=== PATIENT | female | born 2000 | race African-American/Black ===

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

== ENCOUNTER 2018-01-12 23:00 | Emergency (ER) | payer OTHER ==
[2018-01-12 23:55] LABS: Bilirubin Negative (Negative); Blood, Urine Negative (Negative); Clarity Clear (Clear); Glucose, Urine (Dipstick) Negative (Negative); Leukocyte Trace (Negative); Nitrite Negative (Negative); Protein, Urine (Dipstick) Negative (Neg-Trace); Specific Gravity, Urine 1.025 (1.005-1.030); Urobilinogen 0.2 mg/dL (0.2-1.0)
[2018-01-13 00:07] LABS: Bacteria/HPF 2+ HPF (None Seen); Hyaline Casts/LPF NONE SEEN LPF (0-3 Hyaline); RBC/HPF 0-3 HPF (0-3); WBC/HPF 0-3 HPF (0-3)
[2018-01-13 00:18] LABS: Pregnancy Test - Urine (BHCG) Negative (Negative); Pregu Control Background? CLEAR/WHITE (CLR/WHITE); Pregu Control Bar Appear? YES (CONTROL BAR); Specific Gravity 1.025 (1.002-1.036)
== END 2018-01-13 00:35 | disposition home or self-care (01) ==
LOC: SCSER 23:00
DX: N39.0 Urinary tract infection, site not specified (principal); F31.9 Bipolar disorder, unspecified; F17.210 Nicotine dependence, cigarettes, uncomplicated
CPT/HCPCS: 81003; 81015; 81025; 87086; 99283

== ENCOUNTER 2018-02-11 00:39 | Emergency (ER) | payer OTHER ==
--- NOTE | 2018-02-11 07:57 | RAD ---
TWO VIEWS OF THE CHEST: COMPARISON: 06/30/15. HISTORY: Cough with green sputum. FINDINGS: Two views of the chest show normal sized cardiomediastinal silhouette. There is no evidence of consol idation, mass, or pleural effusion. The bones are unremarkable. IMPRESSION: No evidence of acute cardiopulmonary disease. POS: CET
== END 2018-02-11 03:10 | disposition home or self-care (01) ==
LOC: ERS 00:39
DX: J18.9 Pneumonia, unspecified organism (principal); F31.9 Bipolar disorder, unspecified; F17.210 Nicotine dependence, cigarettes, uncomplicated
CPT/HCPCS: 71046

== ENCOUNTER 2018-04-11 21:44 | Emergency (ER) | payer OTHER ==
[2018-04-11 22:32] LABS: Bilirubin Negative (Negative); Blood, Urine Negative (Negative); Clarity Cloudy (Clear); Glucose, Urine (Dipstick) Negative (Negative); Leukocyte Negative (Negative); Nitrite Negative (Negative); Protein, Urine (Dipstick) Negative (Neg-Trace); Specific Gravity, Urine 1.025 (1.005-1.030)
[2018-04-11 22:36] LABS: Pregnancy Test - Urine (BHCG) POSITIVE (Negative); Pregu Control Background? CLEAR/WHITE (CLR/WHITE); Pregu Control Bar Appear? YES (CONTROL BAR); Specific Gravity 1.025 (1.002-1.036)
== END 2018-04-11 22:50 | disposition home or self-care (01) ==
LOC: SCSER 21:44
DX: O21.9 Vomiting of pregnancy, unspecified (principal); O99.89 Other specified diseases and conditions complicating pregnancy, childbirth and the puerperium; R10.9 Unspecified abdominal pain; O99.331 Smoking (tobacco) complicating pregnancy, first trimester; F17.210 Nicotine dependence, cigarettes, uncomplicated; Z3A.00 Weeks of gestation of pregnancy not specified
CPT/HCPCS: 81003; 81025; 99284

== ENCOUNTER 2018-04-13 20:03 | Emergency (ER) | payer OTHER ==
[2018-04-13 20:46] LABS: #Basophils 0.1 thou/uL (0.0-0.2); #Eosinphils 0.2 thou/uL (0.0-0.7); #Monocytes 0.5 thou/uL (0.11-0.59); #Neutrophils 3.7 thou/uL (1.40-6.50); %Basophils 1.5 % (0.0-1.0); %Eosinophils 2.8 % (0.0-10.0); %Lymphocytes 40.3 % (28.0-48.0); %Monocytes 6.7 % (0.0-4.0); %Neutrophils 48.8 % (31.0-61.0); Hemoglobin 12.7 g/dL (12.0-16.0); Mean Corpuscular HGB CONC 33.3 g/dL (32.0-36.0); Mean Corpuscular Hemoglobin 27.6 pg (25.0-35.0); Mean Corpuscular Volume 82.8 fL (78.0-98.0); Mean Platelet Volume 7.5 fL (7.4-10.4); Platelet Count 371 thou/uL (130-400); RBC Distribution Width 11.8 % (11.5-14.5); Red Blood Cell (RBC) Count 4.62 mill/uL (4.00-5.20); White Blood Cell (WBC) Count 7.5 thou/uL (4.8-10.8)
--- NOTE | 2018-04-13 22:15 | ULT ---
PELVIC ULTRASOUND: 04/13/18 HISTORY: Patient has a positive test. Pelvic cramping and pain. COMPARISON: None. TECHNIQUE: Transabdominal and endovaginal imaging of the pelvis is performed. Ovaries are interrogated with gomez scale, color flow, doppler imaging and spectral waveform analysis. FINDINGS: The uterus is identified, without myometrial masses. The uterus measures 4.2 x 5.2 x 8.4 cm. Endometr ium is thickened and has a diameter of approximately 2 cm. Within the endometrium, no evidence of a g estational sac, yolk sac, or pole. No free fluid. Left and right ovary have a normal cortical echotexture. Left ovary measures 2.8 x 2.2 x 2.6 cm. Righ t ovary measures 2.2 x 3.4 x 1.5 c m. OVARIAN DOPPLER: Vascular flow to both ovaries. IMPRESSION: Thickened homogeneous endometrium without evidence of gestational sac, yolk sac or pole. Differ ential considerations include missed spontaneous versus a sonographically occult ectopic pre gnancy, versus early intrauterine gestation. Followup ultrasound and serial beta HGCs are recommended . POS: CESAR
== END 2018-04-13 22:22 | disposition home or self-care (01) ==
LOC: SCSER 20:03
DX: O99.89 Other specified diseases and conditions complicating pregnancy, childbirth and the puerperium (principal); R10.9 Unspecified abdominal pain; O99.331 Smoking (tobacco) complicating pregnancy, first trimester; F17.210 Nicotine dependence, cigarettes, uncomplicated; Z3A.01 Less than 8 weeks gestation of pregnancy
CPT/HCPCS: 76856; 84702; 85025; 86900; 86901

== ENCOUNTER 2018-04-30 22:29 | Emergency (ER) | payer MEDICAID, OTHER ==
[2018-04-30 23:03] LABS: #Basophils 0.2 thou/uL (0.0-0.2); #Eosinphils 0.2 thou/uL (0.0-0.7); #Lymphocytes 3.4 thou/uL (1.20-3.40); #Monocytes 0.9 thou/uL (0.11-0.59); #Neutrophils 5.7 thou/uL (1.40-6.50); %Basophils 1.5 % (0.0-1.0); %Eosinophils 2.3 % (0.0-10.0); %Lymphocytes 32.6 % (28.0-48.0); %Monocytes 8.3 % (0.0-4.0); %Neutrophils 55.4 % (31.0-61.0); Hemoglobin 12.5 g/dL (12.0-16.0); Mean Corpuscular HGB CONC 33.9 g/dL (32.0-36.0); Mean Corpuscular Hemoglobin 27.7 pg (25.0-35.0); Mean Corpuscular Volume 81.6 fL (78.0-98.0); Mean Platelet Volume 7.9 fL (7.4-10.4); Platelet Count 336 thou/uL (130-400); RBC Distribution Width 11.5 % (11.5-14.5); Red Blood Cell (RBC) Count 4.53 mill/uL (4.00-5.20); White Blood Cell (WBC) Count 10.4 thou/uL (4.8-10.8)
[2018-04-30 23:16] LABS: ALT (SGPT) 13 U/L (8-55); AST (SGOT) 11 U/L (5-34); Albumin 4.2 g/dL (3.5-5.0); Alkaline Phosphatase 82 U/L (40-150); Anion Gap 14 mmol/L (10-20); BUN (Urea Nitrogen) 9 mg/dL (7.0-18.7); Bilirubin, Total 0.3 mg/dL (0.2-1.2); Calc. Creatinine Clearance 0 mL/min (70-130); Calcium 9.5 mg/dL (7.8-10.44); Carbon Dioxide 22 mmol/L (22-29); Chloride 107 mmol/L (98-107); Estimated GFR-MDRD Greater than 90; Globulin 3.3 g/dL (2.4-3.5); Glucose 97 mg/dL (70-105); Lipase 14 U/L (8-78); Potassium 3.9 mmol/L (3.5-5.1); Protein, Total 7.5 g/dL (6.0-8.3); Sodium 139 mmol/L (136-145)
[2018-04-30 23:36] LABS: Bilirubin Negative (Negative); Blood, Urine Negative (Negative); Clarity Clear (Clear); Glucose, Urine (Dipstick) Negative (Negative); Leukocyte Negative (Negative); Nitrite Negative (Negative); Protein, Urine (Dipstick) Negative (Neg-Trace); pH, Urine 6.5 (5.0-9.0)
[2018-04-30 23:37] LABS: Specific Gravity, Urine 1.035 (1.002-1.036)
--- NOTE | 2018-05-01 00:01 | ULT ---
RIGHT UPPER QUADRANT ULTRASOUND: 04/30/18 HISTORY: Right upper quadrant pain. TECHNIQUE: Multiplanar gomez scale sonographic imaging of the right upper quadrant provided. FINDINGS: The imaged pancreas appears grossly unremarkable. No focal liver lesion or intrahepatic biliary dilat ation is seen. The dance coach reports a negative Henning's sign. No gallbladder wall thickening or pe richolecystic fluid. No gallstones are noted. The CBD measures 4 mm in transverse dimension, within normal limits. The right kidney measures 11 cm in craniocaudal dimension and demonstrates no evidence for stone, hydronephrosis or mass. IMPRESSION: Unremarkable right upper quadrant ultrasound. POS: [facility]
--- NOTE | 2018-05-01 08:22 | ULT ---
PELVIC ULTRASOUND WITH DOPPLER: (Transabdominal, transvaginal, Walton scale, color flow, and spectral Doppler) Date; 04/30/18 HISTORY: Pelvic pain. FINDINGS: The uterus measures 8.5 x 4.6 x 5.4 cm. The right ovary measures 2.0 x 1.7 x 1.5 cm. The left ovary m easures 3.2 x 1.9 x 2.6 cm. Flow is demonstrated to both ovaries. A single, live intrauterine gestation is seen, with measurements corresponding to an estimated gestat ional age of 7 week/1 day and JAQUELIN at 12/16/18. [place]-rump length measures 1.03 cm and gestational sac diameter is 2.12 cm. heart rate measures 147 beats/minute. No free fluid is seen in the pelvis . IMPRESSION: Single, live intrauterine of 7 weeks/1 day estimated gestational age and JAQUELIN at 12/16/18. POS: ARAM[facility]
== END 2018-05-01 00:19 | disposition home or self-care (01) ==
LOC: SCSER 22:29
DX: O99.89 Other specified diseases and conditions complicating pregnancy, childbirth and the puerperium (principal); R10.11 Right upper quadrant pain; O99.341 Other mental disorders complicating pregnancy, first trimester; F17.210 Nicotine dependence, cigarettes, uncomplicated; Z3A.01 Less than 8 weeks gestation of pregnancy
CPT/HCPCS: 76705; 76856; 80053; 81003; 83690; 84702; 85025

== ENCOUNTER 2018-05-11 23:39 | Emergency (ER) | payer MEDICAID | END 2018-05-12 00:19 | disposition home or self-care (01) | LOC: SCSER 23:39 | DX: O98.511 Other viral diseases complicating pregnancy, first trimester (principal); B34.9 Viral infection, unspecified; O99.331 Smoking (tobacco) complicating pregnancy, first trimester; Z3A.09 9 weeks gestation of pregnancy | CPT/HCPCS: 87804; 99283 ==

== ENCOUNTER 2018-06-11 16:22 | Emergency (ER) | payer MEDICAID ==
[2018-06-11] MEDS ORDERED: Acetaminophen 500 MG TAB ONE (16:49)
[2018-06-11 16:54] LABS: Bilirubin Negative (Negative); Blood, Urine Negative (Negative); Clarity Hazy (Clear); Glucose, Urine (Dipstick) Negative (Negative); Leukocyte Small (Negative); Nitrite Negative (Negative); Protein, Urine (Dipstick) Trace mg/dL (Neg-Trace); Specific Gravity, Urine 1.025 (1.005-1.030)
[2018-06-11 16:56] LABS: Bacteria/HPF 2+ HPF (None Seen); Crystals/HPF 1+ AMORPH PHOS HPF (Negative); RBC/HPF None Seen HPF (0-3)
[2018-06-11 17:06] LABS: #Basophils 0.1 thou/uL (0.0-0.2); #Eosinphils 0.2 thou/uL (0.0-0.7); #Lymphocytes 2.5 thou/uL (1.20-3.40); #Monocytes 0.6 thou/uL (0.11-0.59); #Neutrophils 4.1 thou/uL (1.40-6.50); %Eosinophils 2.9 % (0.0-10.0); %Lymphocytes 33.5 % (28.0-48.0); %Monocytes 7.6 % (0.0-4.0); Hemoglobin 12.5 g/dL (12.0-16.0); Mean Corpuscular HGB CONC 33.8 g/dL (32.0-36.0); Mean Corpuscular Hemoglobin 28.9 pg (25.0-35.0); Mean Corpuscular Volume 85.4 fL (78.0-98.0); Mean Platelet Volume 7.3 fL (7.4-10.4); Platelet Count 345 thou/uL (130-400); RBC Distribution Width 11.1 % (11.5-14.5); Red Blood Cell (RBC) Count 4.34 mill/uL (4.00-5.20); White Blood Cell (WBC) Count 7.5 thou/uL (4.8-10.8)
[2018-06-11 17:22] LABS: ALT (SGPT) 26 U/L (8-55); AST (SGOT) 21 U/L (5-34); Alkaline Phosphatase 67 U/L (40-150); Anion Gap 15 mmol/L (10-20); BUN (Urea Nitrogen) 6 mg/dL (7.0-18.7); Bilirubin, Total 0.3 mg/dL (0.2-1.2); Calc. Creatinine Clearance 0 mL/min (70-130); Calcium 9.6 mg/dL (7.8-10.44); Carbon Dioxide 19 mmol/L (22-29); Chloride 108 mmol/L (98-107); Estimated GFR-MDRD Greater than 90; Globulin 3.5 g/dL (2.4-3.5); Glucose 109 mg/dL (70-105); Lipase 9 U/L (8-78); Potassium 3.5 mmol/L (3.5-5.1); Protein, Total 7.5 g/dL (6.0-8.3); Sodium 138 mmol/L (136-145)
== END 2018-06-11 17:57 | disposition home or self-care (01) ==
LOC: SCSER 16:22
DX: O99.89 Other specified diseases and conditions complicating pregnancy, childbirth and the puerperium (principal); R07.2 Precordial pain; R10.9 Unspecified abdominal pain; O99.331 Smoking (tobacco) complicating pregnancy, first trimester; F17.210 Nicotine dependence, cigarettes, uncomplicated; Z3A.13 13 weeks gestation of pregnancy
CPT/HCPCS: 80053; 81003; 81015; 83690; 84484; 85025; 87086; 93005; 96360

== ENCOUNTER 2018-07-14 16:41 | Emergency (ER) | payer MEDICAID, OTHER ==
[2018-07-14] MEDS ORDERED: diphenhydrAMINE 50 MG/ML VIAL ONE (17:19)
[2018-07-14] MEDS ORDERED: Acetaminophen 500 MG TAB ONE (17:19)
[2018-07-14] MEDS ORDERED: Metoclopramide HCl 10 MG/2 ML VIAL ONE (17:19)
[2018-07-14 17:25] LABS: Bilirubin Small (Negative); Blood, Urine Negative (Negative); Clarity Slightly Cloudy (Clear); Glucose, Urine (Dipstick) Negative (Negative); Leukocyte Negative (Negative); Nitrite Negative (Negative); Protein, Urine (Dipstick) 30 mg/dL (Neg-Trace); pH, Urine 6.5 (5.0-9.0)
[2018-07-14 17:27] LABS: Specific Gravity, Urine 1.031 (1.002-1.036)
[2018-07-14 17:37] LABS: Bacteria/HPF 1+ HPF (None Seen); Crystals/HPF 2+ CA OXALATE HPF (Negative); RBC/HPF 0-3 HPF (0-3); WBC/HPF 0-3 HPF (0-3)
[2018-07-14 17:47] LABS: #Basophils 0.1 thou/uL (0.0-0.2); #Eosinphils 0.2 thou/uL (0.0-0.7); #Lymphocytes 2.5 thou/uL (1.20-3.40); #Monocytes 0.6 thou/uL (0.11-0.59); #Neutrophils 4.8 thou/uL (1.40-6.50); %Basophils 0.8 % (0.0-1.0); %Eosinophils 2.3 % (0.0-10.0); %Lymphocytes 30.7 % (28.0-48.0); %Monocytes 6.9 % (0.0-4.0); %Neutrophils 59.4 % (31.0-61.0); Hemoglobin 11.1 g/dL (12.0-16.0); Mean Corpuscular HGB CONC 34.6 g/dL (32.0-36.0); Mean Corpuscular Hemoglobin 29.3 pg (25.0-35.0); Mean Corpuscular Volume 84.6 fL (78.0-98.0); Mean Platelet Volume 7.4 fL (7.4-10.4); Platelet Count 333 thou/uL (130-400); RBC Distribution Width 11.9 % (11.5-14.5); Red Blood Cell (RBC) Count 3.79 mill/uL (4.00-5.20); White Blood Cell (WBC) Count 8.2 thou/uL (4.8-10.8)
[2018-07-14 18:03] LABS: ALT (SGPT) 12 U/L (8-55); AST (SGOT) 13 U/L (5-34); Albumin 3.8 g/dL (3.5-5.0); Alkaline Phosphatase 71 U/L (40-150); Anion Gap 13 mmol/L (10-20); BUN (Urea Nitrogen) 7 mg/dL (7.0-18.7); Bilirubin, Total 0.3 mg/dL (0.2-1.2); CK (CPK) 86 U/L (29-168); Calc. Creatinine Clearance 0 mL/min (70-130); Calcium 9.8 mg/dL (7.8-10.44); Carbon Dioxide 23 mmol/L (22-29); Chloride 107 mmol/L (98-107); Estimated GFR-MDRD Greater than 90; Globulin 3.4 g/dL (2.4-3.5); Glucose 87 mg/dL (70-105); Magnesium 1.8 mg/dL (1.7-2.2); Potassium 3.5 mmol/L (3.5-5.1); Protein, Total 7.2 g/dL (6.0-8.3); Sodium 139 mmol/L (136-145)
--- NOTE | 2018-07-14 20:45 | ULT ---
ULTRASOUND OBSTETRICAL COMPLETE: 07/14/18 at 6:30 p.m. HISTORY: 18-year-old female with no movement in two days. FINDINGS: number: Vasquez. lie: Cephalic. Maternal cervix: Obscured by adjacent shadowing. Placenta: Posterior. No placenta previa. Amniotic fluid volume: Subjectively normal. YONATHAN not measured. heart rate: 123 bpm The following anatomy is visualized, with no evidence of anomalies: Head, four chamber heart, stomach, cord insertion, bladder, nose and lips and lower extremity. The rest of the anatomy is not well visualized. biometry: Head circumference (HC): 16.7 cm 19w 2d Biparietal diameter (BPD): 4.3 cm 18w 6d Abdominal circumference (AC): 13.7 cm 19w 1d Femur length (FL): 3.0 cm 19w 2d Average ultrasound age (AUA): 19w 0d Estimated date of delivery (JAQUELIN): 12/08/2018 Last menstrual period (LMP): 03/08/2018 Gestational age by LMP: 18w 2d Estimated weight (EFW): 280 g +/- 41 g (0 lb, 10 oz +/- 1 oz). IMPRESSION: 1. Live second trimester intrauterine gestation. 2. Estimated gestational age of 19 weeks, 0 days. 3. Cephalic lie. LYNNE Nolasco POS: MINA
== END 2018-07-14 18:55 | disposition home or self-care (01) ==
LOC: SCSER 16:41
DX: O98.512 Other viral diseases complicating pregnancy, second trimester (principal); J10.1 Influenza due to other identified influenza virus with other respiratory manifestations; O99.332 Smoking (tobacco) complicating pregnancy, second trimester; Z3A.18 18 weeks gestation of pregnancy
CPT/HCPCS: 76805; 76856; 80053; 81003; 81015; 82550; 83735; 85025; 87086; 87804; 96365; 96375; J1200; J2765

== ENCOUNTER 2018-08-06 20:21 | Day surgery (SDC) | payer OTHER ==
[2018-08-06 21:10] VITALS: BP 113/61; TEMP 99.6; BMI 43.0
[2018-08-06] MEDS ORDERED: Acetaminophen 325 MG TAB PO SCH (22:00)
[2018-08-06] MEDS ORDERED: Famotidine 20 MG TAB PO SCH (22:04)
--- NOTE | 2018-08-06 22:09 | PDOC.FPROB ---
FMR OB H&P: HPI - History of Present Illness Chief Complaint: nausea, headache Indentification: History of Present Illness: at 21.4 by 10wk U/S brought in by EMS for nausea, headache. Per patient, no history of problems during this . She has not taken anything for BELTRÁN , described 08/21, no acute vision changes, chest pain or SOB. She has had GERD during this , mildly relieved with tums. She endorses FM, denies VB, CTX, LOF. Feels a little dehydrated, has only been drinking 6 bottles water/ day. No dysuria, hematuria. Primary Care Physician: Dr. Loretta Ramos FMR OB H&P: Current - Care : 1 Para: 0 Gestational age: 21.4 Dating Criteria: 10wk sono - OB Labs Blood type: unknown (records not available, EMR is down) RH: unknown Antibody Screen: unknown HIV: unknown RPR: unknown HepBsAg: unknown Quad screen: unknown Urine drug screen: not done Gonorrhea: unknown Chlamydia: unknown FMR OB H&P: History - Past Medical History PMH: Denies - OB History OB History: None - Surgical History Sx History: none - Social History Social History: Denies tob/drug/etoh - Family History Family History: HTN FMR OB H&P: Medications - Current Home Medications: Medication Instructions Recorded Confirmed Type Pnv73/Iron,Gluc/Folic/Dss/Dha 1 tab PO DAILY 08/06/18 08/06/18 History [Citranatal Assure Combo Pack] Allergies/Adverse Reactions: Allergies Allergy/AdvReac Type Severity Reaction Status Date / Time No Known Allergies Allergy Unverified 08/06/18 22:00 FMR OB H&P: ROS - Review of Systems General: denies: fever/chills, weight/appetite/sleep changes Eyes: denies: eye pain, vision changes ENT: denies: nasal congestion, rhinorrhea Cardiovascular: denies: chest pain Respiratory: denies: cough, congestion, shortness of breath Gastrointestinal: reports: nausea. denies: abdominal pain, vomiting, diarrhea Genitourinary (Female): denies: incontinence, dysuria, hematuria, vaginal discharge, vaginal pain, contractions, vaginal pressure Musculoskeletal: denies: pain, stiffness, decrease range of motion Neurologic: reports: headache. denies: numbness, syncope Endocrine: denies: cold intolerance, heat intolerance Psychological: denies: depression, anxiety FMR OB H&P: Vital Signs - Maternal Vital signs: Vital Signs - First Documented Temp Pulse Resp BP 99.6 F 114 H 18 113/61 08/06/18 21:06 08/06/18 21:06 08/06/18 21:06 08/06/18 21:06 - Heart Tones Baseline: 140 Category: category 1 FMR OB H&P: Physical Exam - Physical Exam General: NAD, awake, alert and oriented HEENT: normocephalic and atraumatic, PERRLA, EOMI, MMM, no scleral icterus, grossly normal vision Neck: supple, FROM Chest: non-tender to palpation Heart: RRR, normal S1/S2 General: CTAB, no respiratory distress, no wheezing Abdomen: gravid, non-tender, bowel sound present Musculoskeletal: pulses present Neurological: cranial nerves II through XII intact Skin: capillary refill <2 seconds Lymphatic: no unusual bruising or bleeding Psychiatric: intact recent and remote memory FMR OB H&P: A/P - Problem List (1) 1, currently Current Visit: Yes Status: Acute Code(s): Z34.00 - ENCNTR FOR SUPRVSN OF NORMAL FIRST , UNSP TRIMESTER Disposition: at 21.4 weeks by 10wk US , sIUP -FHT 140s -No signs of labor -BP <140/<90 -BELTRÁN resolved when in room, will give tylenol 650mg x1 -f/u at 2T ultrasound appt this upcoming wednesday -UA for dark urine, if bacteriuria will send with macrobid GERD -pepcid not helping -will give rantidine -send script ranitidine dispo: discussed with patient who feels comfortable going home, all questions were answered Discussion: Date/Time: 08/06/182205 This H&P was discussed with [] and [] who agree with the above documentation and plan.
[2018-08-06 22:16] LABS: Bilirubin Negative (Negative); Blood, Urine Negative (Negative); Clarity TURBID (Clear); Glucose, Urine (Dipstick) Negative (Negative); Leukocyte Small (Negative); Nitrite Negative (Negative); Protein, Urine (Dipstick) Trace mg/dL (Neg-Trace); Specific Gravity, Urine 1.029 (1.002-1.036); pH, Urine 7.5 (5.0-9.0)
[2018-08-06 22:17] LABS: Squamous Epithelial 21-50 HPF (0-3)
[2018-08-06 22:20] LABS: Pathc Cast-AUWi Flag 2.76 (0-2.49)
[2018-08-06 22:26] LABS: Bacteria/HPF 2+ HPF (None Seen); RBC/HPF 0-3 HPF (0-3); Renal Epithelial 0-3 HPF (0-3)
[2018-08-06 22:32] LABS: Crystals/HPF 2+ URIC ACID HPF (Negative)
[2018-08-06 22:33] LABS: Hyaline Casts/LPF NONE SEEN LPF (0-3 Hyaline)
== END 2018-08-06 22:45 | disposition home or self-care (01) ==
LOC: L&D/OP 20:21
PROVIDERS: ATTEND Family Medicine
DX: O99.89 Other specified diseases and conditions complicating pregnancy, childbirth and the puerperium (principal); R11.0 Nausea; R51 Headache; O99.612 Diseases of the digestive system complicating pregnancy, second trimester; K21.9 Gastro-esophageal reflux disease without esophagitis; Z3A.21 21 weeks gestation of pregnancy; Z79.899 Other long term (current) drug therapy
CPT/HCPCS: 81001; 99285

== ENCOUNTER 2018-08-14 10:38 | Inpatient (IN) | payer OTHER ==
[2018-08-14 10:55] VITALS: BMI 43.0
--- NOTE | 2018-08-14 11:17 | PDOC.FPROB ---
FMR OB H&P: HPI - History of Present Illness Chief Complaint: Lower abdominal pain Indentification: 18 year old at 22.5 wks History of Present Illness: 18 year old at 22.5 wks by LMP/10.0 wk sono presents by EMS with complaint of lower abdominal pain. Patient states the pain started after using the restroom at approximately 8:00 AM this morning. She was unable to describe the nature of the pain, but states it was 10/10 and intermittent at the time, lasting for a few seconds every 5 minutes. Patient states that that the pain has currently resolved. She denies any associated vaginal bleeding, vaginal discharge, or LoF. She denies any headache, vision changes, RUQ pain, N/V. She has not experienced pain like this previously in . Patient states she normally drinks about 8 bottles of water per day, but she has not had any water this morning. She denies dysuria but does endorse urinary hesitancy. Patient endorses good movement. Primary Care Physician: ABRAHAM Ramos FMR OB H&P: Current - Care : 1 Para: 0 Gestational age: 22.5 wks Due date: 12/13/2018 Dating Criteria: LMP/10.0 wk sono - OB Labs Blood type: O RH: positive Antibody Screen: negative HIV: negative RPR: negative HepBsAg: negative Rubella: immune Gonorrhea: negative Chlamydia: negative GBS: unknown H&H: 12.5/35.5 Platelets: 326 FMR OB H&P: History - Past Medical History PMH: Tobacco abuse - OB History OB History: gHTN Tobacco abuse (1 cig/day) - CLEANER History CLEANER History: Denies STD's - Surgical History Sx History: Denies - Social History Social History: Denies alcohol or drug use. Endorses tobacco use. States she has cut down to 1 cigarette per day. She last smoked this morning. - Family History Family History: Denies FMR OB H&P: Medications - Current Home Medications: Medication Instructions Recorded Confirmed Type Pnv73/Iron,Gluc/Folic/Dss/Dha 1 tab PO DAILY 08/06/18 08/06/18 History [Citranatal Assure Combo Pack] Allergies/Adverse Reactions: Allergies Allergy/AdvReac Type Severity Reaction Status Date / Time No Known Allergies Allergy Verified 08/14/18 10:53 FMR OB H&P: ROS - Review of Systems General: denies: fever/chills, weight/appetite/sleep changes, fatigue Eyes: denies: vision changes, scotomas ENT: denies: nasal congestion, rhinorrhea Cardiovascular: denies: chest pain, palpitation, edema Respiratory: denies: cough, congestion, shortness of breath Gastrointestinal: reports: abdominal pain. denies: indigestion, nausea, vomiting, diarrhea, constipation Genitourinary (Female): reports: hesitancy. denies: incontinence, dysuria, vaginal discharge, vaginal bleeding, contractions, vaginal pressure Musculoskeletal: denies: pain, stiffness Neurologic: denies: numbness, syncope, seizures Integumentary: denies: itching, rash, lesions Hematologic/Lymphatic: denies: prolonged or excessive bleeding Psychological: denies: depression, anxiety FMR OB H&P: Vital Signs - Maternal Vital signs: BP 133/78 HR 107 Afebrile - Heart Tones Baseline: 140 FMR OB H&P: Physical Exam - Physical Exam General: NAD, awake, alert and oriented HEENT: MMM, grossly normal vision, grossly normal hearing Heart: normal S1/S2, pulses present, no edema Deviation from normal: Tachycardia General: CTAB, no respiratory distress Abdomen: soft, gravid, non-tender, bowel sound present Musculoskeletal: pulses present, FROM in all four extremities Neurological: no tremor, no focal deficit Skin: no rash, capillary refill <2 seconds Lymphatic: no unusual bruising or bleeding, no purpura Psychiatric: intact recent and remote memory, good judgement and insight - Pelvic Exam Deviation from normal: Bulging bag noted at introitus Presentation: Cephalic FMR OB H&P: A/P - Problem List (1) Abdominal pain affecting Current Visit: Yes Status: Acute Code(s): O26.899 - OTH RELATED CONDITIONS, UNSPECIFIED TRIMESTER; R10.9 - UNSPECIFIED ABDOMINAL PAIN (2) Gestational HTN Current Visit: Yes Status: Acute Code(s): O13.9 - GESTATIONAL HTN W/O SIGNIFICANT PROTEINURIA, UNSP TRIMESTER (3) 1, currently Current Visit: No Status: Acute Code(s): Z34.00 - ENCNTR FOR SUPRVSN OF NORMAL FIRST , UNSP TRIMESTER (4) Tobacco abuse Current Visit: Yes Status: Acute Code(s): Z72.0 - TOBACCO USE (5) Incompetent cervix during second trimester, antepartum Current Visit: Yes Status: Acute Code(s): O34.32 - MATERNAL CARE FOR CERVICAL INCOMPETENCE, SECOND TRIMESTER (6) labor Current Visit: Yes Status: Acute Code(s): O60.00 - LABOR WITHOUT DELIVERY, UNSPECIFIED TRIMESTER Qualifiers: labor trimester: second trimester Disposition: 18 year old at 22.5 wks presents with abdominal pain 1. Abdominal pain affecting 2/2 Incompetent cervix and PTL - Location: lower abdomen/suprabubic region - Nature: Intermittent cramping - Pain 10/10 at onset, but patient currently pain free during evaluation - Dopplers with FHT's 135-145 bpm - Straight cath ordered to evaluate for UTI, but prior to insertion of straight cath, bulging bag noted at introitus. Straight cath d/c'd. - Immediate transfer was initiate to [facility] in [facility]. OB Hospitalist and Kettle Tender immediately notified. Before transfer process completed, patient started to have painful contractions making delivery more imminent. Notified appropriate personnel. Patient moved to laboring room (LDR 1) for expectant management. Thorough discussion was had with patient regarding desire to resuscitate baby once born. Patient has consented to do full court press. Mg , steroids, and penicillin given/started. Dose of Azithromycin given. Expectant management. Patient has opted out of C/S if NRFHT's. If tocolysis effective, and contractions stop, then will re-initiate transfer to [facility] in [facility]. - Bedside sono performed and cephalic presentation noted - Fomral sono confirmed presentation, anterior and fundal placenta. EFW 674 g ( 97%). 2. Incompetent cervix - See above; bulging bag at introitus 3. PTL - Frequent painful contractions started around 12:30 pm - Mg given for neuroprotection and tocolysis - Will try to initiate transfer again if contractions slow down/resolve - Felicity q2-3 minutes - Steroids being given - Penicillin and azithromycin given for ppx - Patient declining continuous monitoring at this time 4. gHTN - Patient not on medications - Patient has not been checking BP at home - BP in office 140's/80's occasionally - BP 133/78 on presentation Discussion: Date/Time: 08/14/18 1113 This H&P was discussed with Dr. Ogden, Dr. Pompa, and Dr. Rainey who agree with the above documentation and plan. Signature: Angelique Llanos, DO PGY-2 Addendum - Attending - Attending Attestation Date/Time: 08/14/18 1616 I personally evaluated the patient and discussed the management with Dr. Llanos. I agree with and repeated the History, Examination, Assessment and Plan documented above with any addition or exceptions noted below. G1 @ 22w5d by good marimar. Please see my discussion in the pertinent event note. At this GA CD not recommended by OCC4. We discussed other measures and the family wishes to pursue steroids, mag, and PCN.
[2018-08-14] MEDS ORDERED: NS / Oxytocin 40 units/1000ml 1,000 ML IV PRN ×2 (12:18→12:33)
[2018-08-14] MEDS ORDERED: Ondansetron PF 4 MG/2 ML Vial IVP PRN (12:18)
[2018-08-14] MEDS ORDERED: Promethazine HCl 25 MG/ML VIAL IM PRN (12:18)
[2018-08-14] MEDS ORDERED: Lidocaine 1% (PF) 30 ML VIAL SC PRN (12:18)
--- NOTE | 2018-08-14 12:24 | PDOC.EVN ---
Event Note - Event Note Event Note: 18 y/o @ 22w5d by 10w janusz here for lower abdominal pain that was severe, q5m but resolved earlier. No VB/LOF or preE symptoms with +FM. Upon evaluation in OBT found to have BBOW at introitus. FHT were at that time cat 1 and she was not melanie. Dr. Pompa and Marie have been consulted and have explained risks. At this point the patient has declined any monitoring of her baby and desires time to think about her options.
[2018-08-14] MEDS ORDERED: Sodium Chloride 0.9% 100 ML ONE (12:25)
[2018-08-14] MEDS ORDERED: Betamet Acet/Betamet Na Ph 30 MG/5 ML VIAL ONE (12:25)
[2018-08-14] MEDS ORDERED: Magnesium Sulfate 20 gm/500 ml 20 GM/500 ML BAG ONE (12:25)
[2018-08-14] MEDS ORDERED: Penicillin G Potassium 5 MILL.UNITS VIAL ONE (12:25)
[2018-08-14] MEDS ORDERED: Lactated Ringer's 1,000 ML IV SCH (12:30)
--- NOTE | 2018-08-14 12:31 | PDOC.EVN ---
Event Note - Event Note Event Note: Discussion with Aletha Storey, and me at bedside with mother and father of baby. They would like everything medical done for their baby, including resuscitation, but specifically decline section. Will begin Mg, BTMZ, and PCN.
[2018-08-14] MEDS ORDERED: Calcium Gluconate 4.6 MEQ in Sodium Chloride 0.9% 100 ML IVPB PRN (12:32)
[2018-08-14 12:37] LABS: Hemoglobin 11.4 g/dL (12.0-16.0); Mean Corpuscular HGB CONC 34.6 g/dL (32.0-36.0); Mean Corpuscular Hemoglobin 30.4 pg (25.0-35.0); Mean Corpuscular Volume 87.8 fL (78.0-98.0); Mean Platelet Volume 7.6 fL (7.4-10.4); Platelet Count 368 thou/uL (130-400); RBC Distribution Width 11.9 % (11.5-14.5); Red Blood Cell (RBC) Count 3.75 mill/uL (4.00-5.20); White Blood Cell (WBC) Count 11.3 thou/uL (4.8-10.8)
--- NOTE | 2018-08-14 12:39 | PDOC.EVN ---
Event Note - Event Note Event Note: Asked to see this 18 yo BF at 22 5/7 weeks by [address] Ogden now presenting with RIED, now c/o [facility]. PNC at with FP and Residents. PMH otherwise unremarkable. The pt. and SO have spoken with Dr. Hatfield regarding issues at "threshold of viability". They do want resuscitation efforts at delivery. She has asked that FHT monitor be removed. Discussion re: operative delivery for any distress also discussed and she has stated that she does not want a "c- section." USG at shows vtx. Plan at this time is give MgS04 for neuroprotection and steroids for FLM along with Pen G and observe for labor progress.
[2018-08-14] MEDS ORDERED: Magnesium Sulfate 20 GM/WATER 500 ML BAG IVPB SCH (12:45)
[2018-08-14] MEDS ORDERED: Betamet Acet/Betamet Na Ph 30 MG/5 ML VIAL IM SCH (12:45)
[2018-08-14] MEDS ORDERED: Penicillin G Potassium 5 MILL.UNITS in Sodium Chloride 0.9% 100 ML IVPB SCH (12:45)
[2018-08-14] MEDS ORDERED: Penicillin G 2.5 MILL.units 2.5 MILL.UNITS in Premix Bag 1 BAG IVPB SCH (12:45)
[2018-08-14] MEDS ORDERED: Magnesium Sulfate 20 gm/500 ml 20 GM/500 ML BAG IVPB SCH (12:45)
[2018-08-14 12:48] LABS: ALT (SGPT) 13 U/L (8-55); AST (SGOT) 14 U/L (5-34); Alkaline Phosphatase 90 U/L (40-150); Anion Gap 14 mmol/L (10-20); BUN (Urea Nitrogen) 6 mg/dL (7.0-18.7); Bilirubin, Total 0.4 mg/dL (0.2-1.2); Calc. Creatinine Clearance 233 mL/min (70-130); Carbon Dioxide 18 mmol/L (22-29); Chloride 109 mmol/L (98-107); Estimated GFR-MDRD Greater than 90; Glucose 96 mg/dL (70-105); Potassium 4.4 mmol/L (3.5-5.1); Sodium 137 mmol/L (136-145)
[2018-08-14 13:06] LABS: HBSAg Index 0.22 S/CO (0-0.99); Hep B Surf Ag Non-Reactive S/CO (NonReactive)
[2018-08-14] MEDS ORDERED: Azithromycin 500 MG in Sodium Chloride 0.9% 250 ML 250 ML IVPB SCH (13:15)
[2018-08-14 13:28] LABS: Syphilis Antibody Nonreactive (Nonreactive); Syphilis Antibody Index 0.04 S/CO (<1.00 Non-Reactive)
--- NOTE | 2018-08-14 13:30 | PDOC.APC ---
Antepartum Consult MEÑO SCHMITT is a 18 year old female at [22 5/7] gestational weeks. I was asked to speak with the patient by Dr. Ogden about imminent delivery at 22 5/7 weeks. Patient presented to L&D via EMS with abdominal pain, found to have bulging membranes. I spoke with the patient and the father of the baby. I discussed that a at 22 weeks has historically been considered previable and resuscitation has not been offered but recent studies have shown that if a mother receives steroids, magnesium and antibiotics, those babies may survive. We discussed that the likelihood of survival to discharge home is low and there is a significant risk for hospital morbidity and fci developmental delay for a baby born periviable if they do survive to discharge. I explained that if they would like for the neonatology service to attempt a trial a resuscitation, the patient would be brought immediately to the warmer and would require intubation as the lungs are extremely immature. We discussed that the patient's airway may be too small for the smallest ETT we have available and if unable to successfully intubate the patient, further attempts at resuscitation would cease. The next goal of resuscitation would be ensuring an adequate heart rate. I explained that if an airway is established, we would breathe for the patient, but that extremely premature infants often need medication to achieve an adequate heart rate or even chest compressions. We discussed that sometimes even with medications and chest compressions, periviable infants may not have a heart rate high enough to survive. I also explained that all organs for periviable babies are extremely immature and the patient is at high risk for hypoglycemia, electrolyte abnormalities, infection and catastrophic bleeding. Once adequate ventilation and circulation were established, the patient would be taken to the NICU for umbilical line placement and transfer to [facility]. If the patient survived transport, the baby would likely have a prolonged hospital course. I also discussed that it is a reasonable option for the family to decide against resuscitative efforts as the baby is extremely premature and unlikely to survive to hospital discharge without major morbidity. They could hold their baby after for as long as he was alive. I asked if they had any questions and they did not. They both expressed that they wanted us to "help him" and I clarified that meant they wanted us to provide resuscitation and they said yes. The family medicine service will give betamethasone, penicillin and magnesium. Estimated weight on US at bedside was ~670 grams with HR of 130. If her contractions blair and a transferring hospital is secured, maternal transport to a higher level of care will be attempted. Labs: Ante Labs Blood Type O POSITIVE 08/14/18 12:02
[2018-08-14 14:21] LABS: Amphetamine Not Detected (NotDetected); Barbiturates Screen Not Detected (NotDetected); Benzodiazepine Screen Not Detected (NotDetected); Cocaine Metabolite Screen Not Detected (NotDetected); Medtox Control Line Valid? VALID (VALID); Medtox Reader # READER 4; Methadone Not Detected (NotDetected); Methamphetamine Not Detected (NotDetected); Opiate Screen Not Detected (NotDetected); Oxycodone Screen Not Detected (NotDetected); Phencyclidine (PCP) Not Detected (NotDetected); THC/Cannabinoid Screen Not Detected (NotDetected); Tricyclic Screen Not Detected (NotDetected)
[2018-08-14 14:23] LABS: Bilirubin Negative (Negative); Blood, Urine Negative (Negative); Clarity CLEAR (Clear); Glucose, Urine (Dipstick) Negative (Negative); Leukocyte Negative (Negative); Nitrite Negative (Negative); Protein, Urine (Dipstick) Negative (Neg-Trace); Specific Gravity, Urine 1.011 (1.002-1.036); Urobilinogen 0.2 mg/dL (0.2-1.0); pH, Urine 7.5 (5.0-9.0)
[2018-08-14 14:24] LABS: Bacteria/HPF None Seen HPF (None Seen); Hyaline Casts/LPF 0-3 HYALINE CAST LPF (0-3 Hyaline); Squamous Epithelial 0-3 HPF (0-3); WBC/HPF 0-3 HPF (0-3)
[2018-08-14 14:28] LABS: RBC/HPF None Seen HPF (0-3)
--- NOTE | 2018-08-14 14:31 | ULT ---
OBSTETRIC SONOGRAM LIMITED: Date: 08/14/18 HISTORY: Third trimester gestation. Evaluate for presentation. FINDINGS: Single intrauterine gestation in cephalic presentation. Amniotic sac bulges through the cervical carlos l and into the vagina. Estimated measurements are as follows: BPD: 23 weeks/3 days HC: 24 weeks/1 day AC: 24 weeks/3 days FL: 24 weeks/1 day Estimated date of delivery based on today's sonogram is 12/05/18. [place] 97th percentile. Estimated weight is 1 lb. 8 oz. (674 gm). IMPRESSION: 1. Cephalic presentation. Estimated gestational age is 23 weeks/6 days. 2. Amniotic sac bulges through the cervical canal and into the upper vagina. POS: [facility]
[2018-08-14] MEDS ORDERED: Azithromycin 500 MG VIAL ONE (14:36)
--- NOTE | 2018-08-14 15:48 | PDOC.EVN ---
Event Note - Event Note Event Note: 08/14/2018 at 15:40 Patient with imminent delivery of membranes. Ruptured bag after delivery. Fluid yellow tinged and malodorous. Likely IUI, will start Amp/Gent ADAN. Cervical check /-1 after delivery of bag. Expectant management at this point. Will recheck at 17:30. If no cervical change at that time, will start pitocin. Angelique Llanos, DO PGY-2 Addendum - Attending - Attending Attestation Date/Time: 08/14/18 1707 I personally evaluated the patient and discussed the management with Dr. Llanos and Dr. Pompa. I agree with and repeated the History, Examination, Assessment and Plan documented above with any addition or exceptions noted below. Pronounced prolapsing of membranes outside of the vaginal and ruptured with foul smelling fluid. Discussed again interventions and again decline but desire resuscitation.
[2018-08-14] MEDS ORDERED: Gentamicin 80 MG/2 ML VIAL IM SCH ×2 (16:00→22:00)
[2018-08-14] MEDS ORDERED: Gentamicin Sulfate 80 MG in Premix Bag 1 BAG IVPB SCH (16:00)
--- NOTE | 2018-08-14 16:22 | PDOC.EVN ---
Event Note - Event Note Event Note: Called to LDR by labor nurse. Large BBOW out of vagina, ruptured. Fluid is cloudy and malodorous. SVE per Dr. Ogden is /vtx. +FHTS. A/P; Chorioamnionitis, 22 weeks: DC PCN and begin Amp/Gent. Would begin pitocin to effect delivery in the maternal interest if not progressing with next exam.
[2018-08-14] MEDS: Ampicillin 2 GM in Sodium Chloride 0.9% 100 ML IVPB SCH ×2 (16:36→22:01)
--- NOTE | 2018-08-14 17:48 | PDOC.EVN ---
Event Note - Event Note Event Note: 08/14/2018 at 17:40 Repeat cervical exam /-2 (unchanged from prior exam). Patient with elevated WBC and malodorous, cloudy fluid on rupture which indicates likely IUI. Antibiotics have already been initiated. While patient has not been febrile at this point, the clinical picture is highly suspicious for IUI and the risk of infection to mother and baby necessitates more imminent delivery. Will initiate augmentation with Pitocin at this time after discussion with ethics committee. Plan discussed with patient and her significant other, and they agree to proceed at this time. Angelique Llanos, DO PGY-2
[2018-08-14] MEDS ORDERED: Ampicillin 2 GM in Sodium Chloride 0.9% 100 ML IVPB SCH (18:00)
[2018-08-14] MEDS ORDERED: NS w/ Oxytocin 10 units 500 ML IV SCH (18:30)
--- NOTE | 2018-08-14 19:02 | PDOC.EVN ---
Event Note - Event Note Event Note: Spoke with Dr. Megan NICOLE regarding this pt. Outlined the followin 5/7 weeks by good dates Rupture of hourglassing membranes showed foul cloudy amniotic fluid c/w chorioamnionitis She has not progressed since rupture While mom does not want operative OB intervention for distress she does request recessitation of baby by Neonatology who is aware. Recommend pitocin induction of labor to effect delivery 2* to chorioamnionitis. I have also discussed this pt. with Dr. Art who agrees with plan to proceed with delivery.
--- NOTE | 2018-08-14 21:11 | PDOC.EVN ---
Event Note - Event Note Event Note: I have been reviewing Linda's care. She is EGA 22w5d by 10w ultrasound. PPROM with IAI based on clinical findings today. Antibiotics initiated. Neuroprotective Mag started. Initially had signs and symptoms of labor. and Ethics team consulted. OBGYN hospitalist consulted. Planned for delivery here. Over past 3 hours her contractions have abated. A window of opportunity to transfer to a higher level of care has opened. After discussion with patient and family they are in agreement for a transfer. She has been accepted to [facility]. Weather conditions have precluded air transport. She will transported via ambulance. She is stable fro transfer at this time. Will continue to monitor and treat. Pitocin has been stopped.
--- NOTE | 2018-08-14 21:34 | PDOC.EVN ---
Event Note - Event Note Event Note: No cervical change x 2 hours. +FHTs noted. No significant UCs seen. Agree with transfer to [address] [place] [address] as I believe this represents best chance to do so in the interest.
--- NOTE | 2018-08-14 21:34 | PDOC.EVN ---
Event Note - Event Note Event Note: 08/14/2018 at 21:00 After thorough discussion with OPERATIONS EXPERT Hospitalist, specimen preparation assistant, primary team, and patient/patient's family, a decision was made to initiate transfer of care to tertiary center. Patient PPROM'd at appx 15:30, foul smelling, cloudy fluid. Amp/Gent initiated for IUI. Cervical check at that time /-. Since that time , patient has made no cervical change and has had no uterine contractions despite being on pitocin for 2 hours. Since there is a window of opportunity for transfer at this time, discussed options with patient and patient's family. Patient and her family have decided on transfer. Call initiated at appx 20:55. Spoke to MFM at [facility] in [place] and they have agreed to accept patient. Patient unable to go by flight due to weather conditions. Discussed potential for delivery in route. Patient understands and is willing to accept risks. Will continue Amp/Gent, Mg in route. ETA for EMS 1 hour. Patient encouraged to ask questions and all questions answered. Angelique Llanos, DO PGY-2
== END 2018-08-14 22:08 | disposition short-term general hospital (02) | DRG 831 ==
LOC: L&D/OP 10:38 → L&D 15:52
PROVIDERS: ADMIT Emergency Medicine; ATTEND Emergency Medicine
DX: O26.892 Other specified pregnancy related conditions, second trimester (principal); O34.32 Maternal care for cervical incompetence, second trimester; O13.2 Gestational [pregnancy-induced] hypertension without significant proteinuria, second trimester; O99.332 Smoking (tobacco) complicating pregnancy, second trimester; F17.200 Nicotine dependence, unspecified, uncomplicated; O60.02 Preterm labor without delivery, second trimester; R10.9 Unspecified abdominal pain; Z3A.22 22 weeks gestation of pregnancy
CPT/HCPCS: 51702; 76815; 80053; 80306; 81001; 83735; 85027; 86780; 86850; 86900; 86901; 87340; 99285; J0290; J0456; J0702; J1580; J2540; J3475; J7050

== ENCOUNTER 2018-09-14 22:49 | Emergency (ER) | payer OTHER ==
[2018-09-14] MEDS ORDERED: Acetaminophen 500 MG TAB ONE (23:23)
[2018-09-14] MEDS ORDERED: Metoclopramide HCl 10 MG TAB ONE (23:23)
[2018-09-14 23:37] LABS: Bilirubin Negative (Negative); Blood, Urine Negative (Negative); Clarity Slightly Cloudy (Clear); Glucose, Urine (Dipstick) Negative (Negative); Leukocyte Negative (Negative); Nitrite Negative (Negative); Protein, Urine (Dipstick) Negative (Neg-Trace); Urobilinogen 0.2 mg/dL (0.2-1.0); pH, Urine 6.5 (5.0-9.0)
== END 2018-09-14 23:52 | disposition home or self-care (01) ==
LOC: SCSER 22:49
DX: R51 Headache (principal); F17.210 Nicotine dependence, cigarettes, uncomplicated
CPT/HCPCS: 81003; 99284; J8597

== ENCOUNTER 2018-11-21 16:57 | Emergency (ER) | payer OTHER ==
[2018-11-21 18:36] LABS: BHCG - Serum Negative (NEGATIVE); Pregs Control Background? CLEAR/WHITE (CLR/WHITE); Pregs Control Bar Appear? YES (CONTROL BAR)
== END 2018-11-21 18:59 | disposition home or self-care (01) ==
LOC: ERS 16:57
DX: N93.9 Abnormal uterine and vaginal bleeding, unspecified (principal); F17.210 Nicotine dependence, cigarettes, uncomplicated
CPT/HCPCS: 36415; 84703; 99281

== ENCOUNTER 2019-01-07 22:07 | Emergency (ER) | payer OTHER | END 2019-01-07 22:40 | disposition home or self-care (01) | LOC: ERS 22:07 | DX: N61.1 Abscess of the breast and nipple (principal); F17.210 Nicotine dependence, cigarettes, uncomplicated; F32.9 Major depressive disorder, single episode, unspecified | CPT/HCPCS: 99283 ==

== ENCOUNTER 2019-02-13 19:32 | Emergency (ER) | payer OTHER ==
[2019-02-13 21:16] LABS: Bacteria/HPF None Seen HPF (None Seen); Bilirubin Negative (Negative); Blood, Urine Negative (Negative); Clarity Clear (Clear); Glucose, Urine (Dipstick) Normal (Negative); Leukocyte 25 Leu/uL (Negative); Nitrite Negative (Negative); Protein, Urine (Dipstick) Negative (Neg-Trace); RBC/HPF 0-3 HPF (0-3); Squamous Epithelial 0-3 HPF (0-3)
[2019-02-13 21:38] LABS: Pregnancy Test - Urine (BHCG) Negative (Negative); Pregu Control Background? CLEAR/WHITE (CLR/WHITE); Pregu Control Bar Appear? YES (CONTROL BAR)
[2019-02-13] MEDS ORDERED: Ketorolac Tromethamine 60 MG/2 ML VIAL ONE (21:45)
== END 2019-02-13 21:52 | disposition home or self-care (01) ==
LOC: ERS 19:32
DX: J02.9 Acute pharyngitis, unspecified (principal); M54.5 Low back pain; F32.9 Major depressive disorder, single episode, unspecified; F17.210 Nicotine dependence, cigarettes, uncomplicated
CPT/HCPCS: 81003; 81015; 81025; 99283; J1885

== ENCOUNTER 2019-03-20 22:43 | Emergency (ER) | payer OTHER, SELFPAY ==
[2019-03-20] MEDS ORDERED: diphenhydrAMINE 25 MG CAP ONE (23:22)
[2019-03-20] MEDS ORDERED: Metoclopramide HCl 10 MG TAB ONE (23:22)
== END 2019-03-20 23:31 | disposition home or self-care (01) ==
LOC: ERS 22:43
DX: R51 Headache (principal)
CPT/HCPCS: 99283; J8597; Q0163

== ENCOUNTER 2019-03-31 16:49 | Emergency (ER) | payer SELFPAY ==
[2019-03-31 17:55] LABS: Bilirubin Negative (Negative); Blood, Urine 2+ (Negative); Clarity Clear (Clear); Glucose, Urine (Dipstick) Normal (Negative); Leukocyte Negative Leu/uL (Negative); Nitrite Negative (Negative); Protein, Urine (Dipstick) Negative (Neg-Trace); RBC/HPF 0-3 HPF (0-3); Squamous Epithelial 0-3 HPF (0-3); WBC/HPF 0-3 HPF (0-3)
[2019-03-31 17:56] LABS: Bacteria/HPF 1+ HPF (None Seen); Pregnancy Test - Urine (BHCG) Negative (Negative); Pregu Control Background? CLEAR/WHITE (CLR/WHITE); Pregu Control Bar Appear? YES (CONTROL BAR); Specific Gravity 1.029 (1.002-1.036)
[2019-03-31 17:57] LABS: #Eosinphils 0.2 thou/uL (0.0-0.7); #Lymphocytes 2.6 thou/uL (1.20-3.40); #Monocytes 0.4 thou/uL (0.11-0.59); #Neutrophils 2.3 thou/uL (1.40-6.50); %Basophils 0.8 % (0.0-1.0); %Eosinophils 4.4 % (0.0-10.0); %Lymphocytes 46.3 % (21.0-51.0); %Monocytes 7.5 % (0.0-10.0); Hemoglobin 13.3 g/dL (12.0-16.0); Mean Corpuscular HGB CONC 34.4 g/dL (32.0-36.0); Mean Corpuscular Hemoglobin 29.6 pg (27.0-31.0); Mean Corpuscular Volume 86.1 fL (78.0-98.0); Mean Platelet Volume 7.6 fL (7.4-10.4); Platelet Count 367 thou/uL (130-400); RBC Distribution Width 12.2 % (11.5-14.5); Red Blood Cell (RBC) Count 4.49 mill/uL (4.20-5.40); White Blood Cell (WBC) Count 5.6 thou/uL (4.8-10.8)
[2019-03-31 18:05] LABS: BHCG - Serum Negative (NEGATIVE); Pregs Control Background? CLEAR/WHITE (CLR/WHITE); Pregs Control Bar Appear? YES (CONTROL BAR)
[2019-03-31 18:18] LABS: ALT (SGPT) 18 U/L (8-55); AST (SGOT) 16 U/L (5-34); Albumin 4.1 g/dL (3.5-5.0); Alkaline Phosphatase 101 U/L (40-110); Anion Gap 12 mmol/L (10-20); BUN (Urea Nitrogen) 10 mg/dL (7.0-18.7); Bilirubin, Total 0.6 mg/dL (0.2-1.2); Calc. Creatinine Clearance 0 mL/min (70-130); Calcium 9.3 mg/dL (7.8-10.44); Carbon Dioxide 25 mmol/L (22-29); Chloride 107 mmol/L (98-107); Estimated GFR-MDRD 85; Globulin 3.2 g/dL (2.4-3.5); Glucose 90 mg/dL (70-105); Potassium 4.2 mmol/L (3.5-5.1); Protein, Total 7.3 g/dL (6.0-8.3); Sodium 140 mmol/L (136-145)
[2019-04-02 21:36] LABS: Chlamydia by PCR Not Detected (NotDetected); GC by PCR Not Detected (NotDetected)
== END 2019-03-31 19:40 | disposition home or self-care (01) ==
LOC: ERS 16:49
DX: O23.41 Unspecified infection of urinary tract in pregnancy, first trimester (principal); O10.911 Unspecified pre-existing hypertension complicating pregnancy, first trimester; O99.331 Smoking (tobacco) complicating pregnancy, first trimester; F17.210 Nicotine dependence, cigarettes, uncomplicated; Z3A.10 10 weeks gestation of pregnancy
CPT/HCPCS: 36415; 80053; 81003; 81015; 81025; 84702; 84703; 85025; 86900; 86901; 87086; 87480; 87491; 87510; 87591; 87660; 99284

== ENCOUNTER 2020-09-27 23:06 | Emergency (ER) | payer OTHER, SELFPAY ==
[2020-09-28 01:07] LABS: Bacteria/HPF None Seen HPF (None Seen); Bilirubin Negative (Negative); Blood, Urine Negative (Negative); Clarity Extra Turbid (Clear); Glucose, Urine (Dipstick) Normal (Negative); Ketone, Urine Negative (Negative); Leukocyte 75 Leu/uL (Negative); Nitrite Negative (Negative); Protein, Urine (Dipstick) Negative (Neg-Trace); RBC/HPF 0-3 HPF (0-3); Specific Gravity, Urine 1.022 (1.002-1.036)
== END 2020-09-28 01:31 | disposition home or self-care (01) ==
LOC: ERS 23:06
DX: O23.41 Unspecified infection of urinary tract in pregnancy, first trimester (principal); O13.1 Gestational [pregnancy-induced] hypertension without significant proteinuria, first trimester; Z3A.14 14 weeks gestation of pregnancy
CPT/HCPCS: 81003; 81015; 87086; 99283

== ENCOUNTER 2023-02-16 18:35 | Emergency (ER) | payer OTHER ==
[2023-02-16] MEDS ORDERED: Bupivacaine 0.25% 10 ML VIAL ONE (19:24)
[2023-02-16] MEDS ORDERED: HYDROcodone/Acetaminophen 5/325 mg Tablet ONE (19:47)
== END 2023-02-16 19:49 | disposition home or self-care (01) ==
LOC: ERS 18:35
DX: K04.7 Periapical abscess without sinus (principal); I10 Essential (primary) hypertension
CPT/HCPCS: 96372; 99282; S0020

== ENCOUNTER 2023-11-17 18:23 | Emergency (ER) | payer OTHER ==
[2023-11-17] MEDS ORDERED: Dexamethasone 10 MG/ML VIAL ONE (18:44)
[2023-11-17] MEDS ORDERED: Ketorolac Tromethamine 30 MG (1 mL) VIAL ONE (18:44)
[2023-11-17] MEDS ORDERED: Bicillin LA 1.2 MILLION UNITS/2 ML SYRINGE ONE (18:50)
== END 2023-11-17 20:19 | disposition home or self-care (01) ==
LOC: ERS 18:23
DX: J02.0 Streptococcal pharyngitis (principal); E86.0 Dehydration; I10 Essential (primary) hypertension
CPT/HCPCS: 87430; 96372; 99283; J0561; J1100; J1885